=== PATIENT | female | born 1990 | race Caucasian/White ===

== ENCOUNTER → 2017-01-26 | Outpatient (CLI) | payer MEDICAID ==
[~2017-01-26] MED LIST: AMOXICILLIN 50500 MG PO; AMOXIL500 MG PO; BACTROBAN2% TP; CIPRO 500MG TA500 MG PO; IMPLANON68 MG; LORTAB 5/500 501 TAB PO; MEDROL 4MG. DOSE4 MG PO; MOTRIN 400MG.400 MG PO; NAPROSYN 500MG500 MG PO; NOMEDS *; OXYCODONE 5MG TA5 MG PO; PYRIDIUM 200MG200 MG PO; SEPTRA DS 800 M1 TAB PO; VICODIN 5/500 T1 TAB PO
--- NOTE | 2017-02-01 09:22 | RADIOLOGY REPORT PS360 ---
DIG MAMM-DX UNI-RT W/CAD, US BREAST-RT COMPLETE W/AXILLA COMPARISON: None INDICATION: Palpable nodule in the right breast ORDERING PHYSICIAN: [facility] PATIENT AGE: 26 years FINDINGS: There is average fibroglandular tissue. Partially calcified nodules are present in the upper aspect of the right breast at the 1:00 region as well as the 2:00 area consistent with partially calcified oil cysts . No malignant appearing mass or malignant appearing microcalcification is evident. RIGHT BREAST ULTRASOUND: No malignant appearing mass evident. There is some mild ductal ectasia near the nipple. There are partially calcified oral cyst at 12:00 measuring 4 mm and at 1:00 measuring 5 mm. IMPRESSION: Benign findings. No evidence of malignancy BI-RADS CATEGORY: 2_Benign RECOMMENDED FOLLOWUP: As clinically warranted. A negative mammogram and negative ultrasound does not exclude the possibility of malignancy. Any palpable nodule should be managed on clinical basis (A letter has been sent to the patient regarding results of the study.)
--- NOTE | 2017-02-01 09:22 | RADIOLOGY REPORT PS360 ---
DIG MAMM-DX UNI-RT W/CAD, US BREAST-RT COMPLETE W/AXILLA COMPARISON: None INDICATION: Palpable nodule in the right breast ORDERING PHYSICIAN: [facility] PATIENT AGE: 26 years FINDINGS: There is average fibroglandular tissue. Partially calcified nodules are present in the upper aspect of the right breast at the 1:00 region as well as the 2:00 area consistent with partially calcified oil cysts . No malignant appearing mass or malignant appearing microcalcification is evident. RIGHT BREAST ULTRASOUND: No malignant appearing mass evident. There is some mild ductal ectasia near the nipple. There are partially calcified oral cyst at 12:00 measuring 4 mm and at 1:00 measuring 5 mm. IMPRESSION: Benign findings. No evidence of malignancy BI-RADS CATEGORY: 2_Benign RECOMMENDED FOLLOWUP: As clinically warranted. A negative mammogram and negative ultrasound does not exclude the possibility of malignancy. Any palpable nodule should be managed on clinical basis (A letter has been sent to the patient regarding results of the study.)
--- NOTE | 2017-02-01 09:22 | RADIOLOGY REPORT PS360 ---
DIG MAMM-DX UNI-RT W/CAD, US BREAST-RT COMPLETE W/AXILLA COMPARISON: None INDICATION: Palpable nodule in the right breast ORDERING PHYSICIAN: [facility] PATIENT AGE: 26 years FINDINGS: There is average fibroglandular tissue. Partially calcified nodules are present in the upper aspect of the right breast at the 1:00 region as well as the 2:00 area consistent with partially calcified oil cysts . No malignant appearing mass or malignant appearing microcalcification is evident. RIGHT BREAST ULTRASOUND: No malignant appearing mass evident. There is some mild ductal ectasia near the nipple. There are partially calcified oral cyst at 12:00 measuring 4 mm and at 1:00 measuring 5 mm. IMPRESSION: Benign findings. No evidence of malignancy BI-RADS CATEGORY: 2_Benign RECOMMENDED FOLLOWUP: As clinically warranted. A negative mammogram and negative ultrasound does not exclude the possibility of malignancy. Any palpable nodule should be managed on clinical basis (A letter has been sent to the patient regarding results of the study.)
--- NOTE | 2017-02-01 09:22 | RADIOLOGY REPORT PS360 ---
DIG MAMM-DX UNI-RT W/CAD, US BREAST-RT COMPLETE W/AXILLA COMPARISON: None INDICATION: Palpable nodule in the right breast ORDERING PHYSICIAN: [facility] PATIENT AGE: 26 years FINDINGS: There is average fibroglandular tissue. Partially calcified nodules are present in the upper aspect of the right breast at the 1:00 region as well as the 2:00 area consistent with partially calcified oil cysts . No malignant appearing mass or malignant appearing microcalcification is evident. RIGHT BREAST ULTRASOUND: No malignant appearing mass evident. There is some mild ductal ectasia near the nipple. There are partially calcified oral cyst at 12:00 measuring 4 mm and at 1:00 measuring 5 mm. IMPRESSION: Benign findings. No evidence of malignancy BI-RADS CATEGORY: 2_Benign RECOMMENDED FOLLOWUP: As clinically warranted. A negative mammogram and negative ultrasound does not exclude the possibility of malignancy. Any palpable nodule should be managed on clinical basis (A letter has been sent to the patient regarding results of the study.)
== END ==
LOC: RAD 13:53
DX: N63.10 Unspecified lump in the right breast, unspecified quadrant (principal)
CPT/HCPCS: G0206-RT